=== PATIENT | male | born 1975 | race Two or more races ===

== ENCOUNTER → 2025-05-08 09:29 | Outpatient (REF) | payer BC, SELFPAY ==
[2025-05-08 12:57] LABS: Glycohemoglobin (HgbA1c) 5.4 % (4.0-5.6)
[2025-05-08 13:12] LABS: Microalb - Urine Creatinine 236.200 mg/dl
[2025-05-08 13:18] LABS: Microalbumin, Random Urine 0.9 mg/dl (0.6-1.7)
== END ==
LOC: HWLAB 09:29
PROVIDERS: ATTENDING PHYSICIAN Student in an Organized Health Care Education/Training Program
DX: E11.9 Type 2 diabetes mellitus without complications (principal); E66.9 Obesity, unspecified
CPT/HCPCS: 36415; 82043; 82570; 83036; 83880